=== PATIENT | male | born 1990 | race Caucasian/White ===

== ENCOUNTER 2020-01-16 15:07 | Outpatient (REF) | payer OTHER, SELFPAY | END 2020-01-16 15:08 | disposition home or self-care (01) | LOC: HO.LAB 15:07 | PROVIDERS: Visit Provider Nurse Practitioner Family | DX: Z20.828 Contact with and (suspected) exposure to other viral communicable diseases (principal); R05 Cough | CPT/HCPCS: U0003 ==

== ENCOUNTER 2020-01-22 09:28 | Outpatient (REF) | payer OTHER, SELFPAY ==
[2020-01-22 11:50] LABS: Anion Gap 11 (12-20); Blood Urea Nitrogen 15 mg/dL (9-16); Calcium 8.8 mg/dL (8.4-10.2); Carbon Dioxide 28 mmol/L (22-29); Chloride 104 mmol/L (96-108); Cholesterol 153 mg/dL; Estimated Glomerular Filt Rate > 60; Glucose Fasting 96 mg/dL (60-99); HDL Cholesterol 59 mg/dL; LDL Cholesterol Calculated 83 mg/dl; Potassium 4.6 mmol/l (3.3-5.1); Sodium 138 mmol/L (135-145); Triglycerides 58 mg/dL
== END 2020-01-22 09:29 | disposition home or self-care (01) ==
LOC: HO.HMGCLDS 09:28
PROVIDERS: PCP Internal Medicine; Visit Provider Internal Medicine
DX: Z00.01 Encounter for general adult medical examination with abnormal findings (principal); I10 Essential (primary) hypertension; R12 Heartburn; R14.0 Abdominal distension (gaseous); Z13.220 Encounter for screening for lipoid disorders
CPT/HCPCS: 80048; 80061

== ENCOUNTER 2021-04-04 11:56 | Inpatient (IN) | payer OTHER, SELFPAY ==
--- NOTE | 2021-04-04 | ECG_ITS ---
Test Reason : CHEST PAIN Blood Pressure : / mmHG Vent. Rate : 104 BPM Atrial Rate : 104 BPM P-R Int : 146 ms QRS Dur : 084 ms QT Int : 338 ms P-R-T Axes : 066 069 025 degrees QTc Int : 444 ms Sinus tachycardia with frequent , and consecutive Premature ventricular complexes Abnormal ECG No previous ECGs available Referred By: Generic ED Physician Electronically Signed By:GEORGE GUERRA
--- NOTE | ~2021-04-04 | US_ITS ---
EXAMINATION: US SCROTUM CLINICAL INFORMATION: Right testicular pain. COMPARISON: None TECHNIQUE: A sonogram of the scrotum was performed assessing bloom-scale appearance and color Doppler flow. Spectral Doppler analysis of the arterial and venous flow were performed in the testes bilaterally. FINDINGS: RIGHT: Right testicle measures 5.4 x 2.1 x 2.2 cm, volume 19 mL. No focal testicular parenchymal lesions are visualized. Spectral Doppler analysis of the arterial and venous flow is normal in the right testis. Right epididymal head is normal in size. No right hydrocele or varicocele is seen. Right epididymal Doppler flow is normal. LEFT: Left testicle measures 5.6 x 2.3 x 2.7 cm, volume 18 mL. No focal testicular parenchymal lesions are visualized. Spectral Doppler analysis of the arterial and venous flow is normal in the left testis. Left epididymal head is normal in size. No left hydrocele or varicocele is seen. Left epididymal Doppler flow is normal. US/US scrotum doppler IMPRESSION: Normal ultrasound of the testicles and scrotal contents. There is no evidence for any active torsion. Clinical follow-up and management recommended.
[2021-04-04 12:02] VITALS: BP 147/99; PULSE 83; RESP 18; TEMP 36.7; O2SAT 100; BMI 30.8
[2021-04-04 13:00] VITALS: BP 141/93; PULSE 80; RESP 13; TEMP 36.2; O2SAT 100
[2021-04-04 13:18] LABS: MANUAL DIFF FLAG NO
[2021-04-04 13:19] LABS: Basophils Percent Auto 0.4 % (0-2); Eosinophils Absolute Auto 0.1 X10*3/uL (0.0-0.4); Hematocrit 45.4 % (42.0-52.0); Hemoglobin 15.9 g/dl (14.0-18.0); Imm Gran Abs Auto 0.04 X10*3/uL (0.00-0.03); Imm Gran Pct Auto 0.6 % (0.0-0.4); Lymphocytes Absolute Auto 1.2 X10*3/uL (1.2-4.9); Lymphocytes Percent Auto 17.3 % (20-40); Mean Corpuscular Hemoglobin 31.2 pg (27.0-33.0); Mean Platelet Volume 9.3 fL (9.4-12.4); Monocytes Absolute Auto 0.8 X10*3/uL (0.1-1.2); Monocytes Percent Auto 11.6 % (2-11); Neutrophils Absolute Auto 4.9 x10*3/uL (2.0-8.3); Neutrophils Percent Auto 69.1 % (45-73); Platelet Count 226 X10*3/uL (160-400); Red Cell Distribution Width 11.9 % (11.0-16.0); White Blood Count 7.1 X10*3/uL (4.8-10.8)
--- NOTE | 2021-04-04 13:20 | ED_ITS ---
HPI - Chest Pain General Chief Complaint: Chest Pain Stated Complaint: chest pain Time Seen by Provider: 04/04/21 12:52 Source: patient Mode of arrival: ambulatory Limitations: no limitations History of Present Illness HPI narrative: This is a 30-year-old male coming in with multiple complaints patient is telling me that he is experiencing palpitations chest discomfort the left side of his chest, right-sided testicular swelling and pain and alcohol withdrawal all x4 days progressively worsening. He tells me that his chest pain is intermittent, localized to the left side of his chest describes as stabbing pain, nonradiating, severe. He tells me that he was evaluated for this chest pain at [facility] where he received an echo, EKG attest were all reassuring and within normal limits. He has a history of PVCs. He tells me that when he is having them he feels like his heart skips a beat. He is also complaining of right- sided testicular swelling and pain that started about 4 days ago been progressively or worsening, he tells me the right side of his scrotum peers to be more swollen than his left, he tells me he has gotten epididymitis before, and this feels like epididymitis, he has a remote history of gonorrhea and chlamydia which were treated according to patient. He also tells me that he stopped drinking 4 days ago he used to be a heavy drinker, drinking daily and he tells me he cut off drinking cold turkey. At this time patient appears extremely anxious upon my history taking. He denies fevers, chills, nausea, vomiting, abdominal pain, urinary frequency/urgency, dysuria, penile discharge. Patient also reports he is under lot of stress, his is currently and she is due in a few weeks. MD complaint: chest discomfort Onset (ago): day(s) (4) Timing of current episode: episodic Prior episodes: Yes Onset: during rest Pain location: left chest Pain radiation: none Severity: moderate Relieving factors: nothing Exacerbating factors: nothing Treatment prior to arrival: none Related Data Previous Rx's Medication Instructions Recorded doxycycline hyclate 100 mg capsule 100 mg PO BID 10 Days #20 cap 04/04/21 Allergies Allergy/AdvReac Type Severity Reaction Status Date / Time Sulfa (Sulfonamide AdvReac Nausea Verified 12/10/20 12:23 Antibiotics) Review of Systems Review of Systems: Constitutional : No Weight loss, No Fever, No Chills, No Fatigue, No Malaise ENT/Mouth : No sore throat, No Rhinorrhea Eyes: No Eye Pain, No Swelling, No Redness Cardiovascular : + Chest Pain, No SOB, No Dyspnea on Exertion, No Orthopnea, No Edema, + Palpitations Respiratory : No Cough, No Sputum, No Wheezing Gastrointestinal : No Nausea, No Vomiting, No Diarrhea, No Constipation, No abdominal Pain, No Hematochezia, No Melena Genitourinary : No Dysuria, No Urinary Frequency, No Hematuria, + testicular pain and swelling Musculoskeletal : No joint pain, No Myalgias, No Joint Swelling Skin : No Skin Lesions, No rash Neuro : No Weakness, No Numbness, No Dizziness, No Headache Psych : + Anxiety/Panic, No Depression All other systems reviewed and are negative Yes all other systems are reviewed and are negative [facility] Past Medical History Attestation statement: The following information was validated with the patient. Source: old records reviewed and nursing notes reviewed Medical History Chronic heartburn Chronic heartburn Family history of Crohn's disease Hemorrhoids Postprandial abdominal bloating Surgical History H/O: hemorrhoidectomy Family History Family History Sister Crohn's disease Social History Social History Alcohol intake: former Patient Tobacco Use Status: Former Tobacco user Use of substances other than those prescribed or required for medical reasons: No Advance Directives: No Advance Directives Information Provided: Yes Physical Exam Vital Signs: Vital Signs: Last Vital Signs Temp 97.2 F 04/04/21 13:00 Pulse 85 04/04/21 16:00 Resp 16 04/04/21 16:00 BP 138/85 04/04/21 16:00 Pulse Ox 98 04/04/21 16:00 BMI result Body Mass Index 30.8 VSS Appearance: Alert.? Oriented X3.? No acute distress.?+ patient is speaking very rapidly, appears to be very anxious. Head: Normocephalic, atraumatic, no step-offs or deformities Eyes: Pupils equal, round and reactive to light.? ENT: Pharynx normal.? Neck: Normal inspection.? Neck supple.? CVS: + rapid rate regular rhythm. Pulses normal.? Respiratory: No respiratory distress.? Breath sounds normal.? Abdomen: Soft and nontender.? 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 Slight swelling noted to the right scrotum, epididymis tender on the right-hand side. Normal on the left. Skin: Skin warm and dry.? Normal skin color.? Normal skin turgor.? Extremities: No lower extremity edema.? No calf ttp. 5/5 strength to bilateral upper and lower extremities. No asterixis, no fasciculations to tongue or upper extremities. Back: No midline tenderness, no C-spine tenderness, full range of motion, no CVA tenderness bilaterally Neuro: Oriented X 3.? No motor deficit.? No sensory deficit. Course Reevaluation(s) Reevaluation #1: CBC had no acute findings. Chemistry with no acute electrolyte abnormalities. Troponin negative. Urine clean. EKG with sinus tachycardia with frequent consecutive PVCs. Scrotal ultrasound within normal limits. Prophylactically treating patient for gonorrhea and chlamydia. TT Dr. Roman to see if patient would benifit from BB therapy as this has been going on for a while and he has been to multiple hospitals within the past few days. Time: 14:42 Reevaluation #2: Patient continues to have palpitations, lasting a few seconds, described as s evere. Time: 15:03 Reevaluation #3: Patient telling me that he is still having the chest pain, he did take asa at home. TT Dr. Horne who tells me his EKG looks like RVOT which can be treated with BB. Due to patient leaving stopping alcohol abruptly, his palpitations and his complaints of dizziness at this time will recheck to the hospitalist for admission. Will admit to hospitalist team. Time: 16:14 MDM - Chest Pain MDM Narrative Medical decision making narrative: 1313 30 yo m presents with anxiety, chest pain, palpitations and right testicular pain and swelling x4 days. Patient was recently evaluated and treated at [facility] where he obtain lab work, imaging and an ultrasound all of which were within normal limits. Patient was told that he has PVCs. Here patient is having PVCs on the monitor, doublets. Physical examination significant for very anxious 30-year-old male lying on the stretcher, speaking rapidly. Rapid regular rhythm noted. Likely sinus tachycardia. Lungs clear. Upon sensitive exam it appears as though the right scrotum is slightly more swollen than the left, slight tenderness to epididymis on the right. Normal on the left. At this time a testicular scrotal ultrasound with Doppler will be ordered to rule out torsion, epididymitis. Labs, urine, EKG, cardiac monitoring, CT/NG by urine will also be ordered. Based off of my initial evaluation a sink as though patient's symptoms are secondary to alcohol withdrawal, and anxiety. Unlikely cardiac in origin. However cardiac workup will be done to rule out ACS. Medical Records Data Attestation: I reviewed the patient's medical records. Lab Data Attestation: I reviewed the patient's lab results. Result diagrams: 04/04/21 13:13 04/04/21 13:13 Labs: Lab Results 04/04/21 04/04/21 04/04/21 Range/Units 13:13 13:13 13:13 WBC 7.1 (4.8-10.8) X10*3/uL RBC 5.10 (4.60-5.80) X10*6/uL Hgb 15.9 (14.0-18.0) g/dl Hct 45.4 (42.0-52.0) % MCV 89.0 (80.0-98.0) fL MCH 31.2 (27.0-33.0) pg MCHC 35.0 (31.0-36.0) g/dl RDW 11.9 (11.0-16.0) % Plt Count 226 (160-400) X10*3/uL MPV 9.3 L (9.4-12.4) fL Immature Gran % (Auto) 0.6 H (0.0-0.4) % Neut % (Auto) 69.1 (45-73) % Lymph % (Auto) 17.3 L (20-40) % [place] % (Auto) 11.6 H (2-11) % Eos % (Auto) 1.0 (0-4) % Baso % (Auto) 0.4 (0-2) % Lymph # (Auto) 1.2 (1.2-4.9) X10*3/uL [place] # (Auto) 0.8 (0.1-1.2) X10*3/uL Eos # (Auto) 0.1 (0.0-0.4) X10*3/uL Baso # (Auto) 0.0 (0.0-0.2) X10*3/uL Abs Immat Gran (auto) 0.04 H (0.00-0.03) X10*3/uL Absolute Neuts (auto) 4.9 (2.0-8.3) x10*3/uL Absolute Nucleated RBC 0.000 (0.0-0.012) X10*3/uL Nucleated RBC % (auto) 0.0 (0.0-0.2) /100WBC Sodium 138 (135-145) mmol/L Potassium 3.8 (3.3-5.1) mmol/L Chloride 103 (96-108) mmol/L Carbon Dioxide 25 (22-29) mmol/L Anion Gap 14 (12-20) BUN 10 (9-16) mg/dL Creatinine 0.99 (0.5-1.4) mg/dL Estim Creat Clear Calc 128.9 Estimated GFR > 60 Random Glucose 89 (60-115) mg/dL Calcium 9.9 D (8.4-10.2) mg/dL Magnesium 2.1 (1.6-2.6) mg/dL Troponin I High Sens < 3.5 (<3.5-35.0) ng/L Urine Color Urine Appearance Urine pH (5.0-8.0) Ur Specific [place] (1.005-1.025) Urine Protein (NEG-TRACE) MG/DL Urine Glucose (UA) (NEG) MG/DL Urine Ketones (NEG) MG/DL Urine Blood (NEG) Urine Nitrite (NEG) Ur Leukocyte Esterase (NEG) Urine RBC (0) /HPF Urine WBC (0-4) /HPF Ur Squamous Epith Cells /LPF Amorphous Sediment /LPF Urine Bacteria /LPF 04/04/21 Range/Units 13:40 WBC (4.8-10.8) X10*3/uL RBC (4.60-5.80) X10*6/uL Hgb (14.0-18.0) g/dl Hct (42.0-52.0) % MCV (80.0-98.0) fL MCH (27.0-33.0) pg MCHC (31.0-36.0) g/dl RDW (11.0-16.0) % Plt Count (160-400) X10*3/uL MPV (9.4-12.4) fL Immature Gran % (Auto) (0.0-0.4) % Neut % (Auto) (45-73) % Lymph % (Auto) (20-40) % [place] % (Auto) (2-11) % Eos % (Auto) (0-4) % Baso % (Auto) (0-2) % Lymph # (Auto) (1.2-4.9) X10*3/uL [place] # (Auto) (0.1-1.2) X10*3/uL Eos # (Auto) (0.0-0.4) X10*3/uL Baso # (Auto) (0.0-0.2) X10*3/uL Abs Immat Gran (auto) (0.00-0.03) X10*3/uL Absolute Neuts (auto) (2.0-8.3) x10*3/uL Absolute Nucleated RBC (0.0-0.012) X10*3/uL Nucleated RBC % (auto) (0.0-0.2) /100WBC Sodium (135-145) mmol/L Potassium (3.3-5.1) mmol/L Chloride (96-108) mmol/L Carbon Dioxide (22-29) mmol/L Anion Gap (12-20) BUN (9-16) mg/dL Creatinine (0.5-1.4) mg/dL Estim Creat Clear Calc Estimated GFR Random Glucose (60-115) mg/dL Calcium (8.4-10.2) mg/dL Magnesium (1.6-2.6) mg/dL Troponin I High Sens (<3.5-35.0) ng/L Urine Color YELLOW Urine Appearance CLEAR Urine pH 7.0 (5.0-8.0) Ur Specific [place] 1.010 (1.005-1.025) Urine Protein NEG (NEG-TRACE) MG/DL Urine Glucose (UA) NEG (NEG) MG/DL Urine Ketones NEG (NEG) MG/DL Urine Blood NEG (NEG) Urine Nitrite NEG (NEG) Ur Leukocyte Esterase NEG (NEG) Urine RBC 0 (0) /HPF Urine WBC 0 (0-4) /HPF Ur Squamous Epith Cells NONE /LPF Amorphous Sediment TRACE /LPF Urine Bacteria NONE /LPF Critical Care Time Critical Care Time Critical Care Time: No Discharge Plan Discharge Clinical Impression: Chest pain, Epididymitis, Frequent PVCs, Alcohol withdrawal Patient Disposition: Admitted As Inpatient Additional Instructions: Take your medications as prescribed. If you were prescribed antibiotics today, it is important that you take your medication to their entirety, do not skip any doses, do not finish them early. Follow-up with your primary care provider this week. Return to the emergency department with new or worsening symptoms. In case of emergency call 911
[2021-04-04] MEDS: cefTRIAXone sodium 500 MG, Lidocaine HCl 1 % MPF 1 ML IM (13:33)
[2021-04-04] MEDS: LORazepam 2 MG/ML VIAL 1 MG IVPUSH (13:33)
[2021-04-04 13:36] LABS: Anion Gap 14 (12-20); Blood Urea Nitrogen 10 mg/dL (9-16); Calcium 9.9 mg/dL (8.4-10.2); Carbon Dioxide 25 mmol/L (22-29); Chloride 103 mmol/L (96-108); Creatinine Clr Calc Pharmacy 128.9; Estimated Glomerular Filt Rate > 60; Glucose Random 89 mg/dL (60-115); Potassium 3.8 mmol/L (3.3-5.1); Sodium 138 mmol/L (135-145)
[2021-04-04 13:38] LABS: Troponin-I High Sensitivity < 3.5 ng/L (<3.5-35.0)
[2021-04-04 14:01] LABS: Appearance Urine CLEAR; Color Urine YELLOW; Glucose Urine UA NEG (NEG); Leukocyte Esterase Urine NEG (NEG); Nitrite Urine NEG (NEG); Urine Blood NEG (NEG); Urine Ketones NEG (NEG); Urine Protein NEG (NEG-TRACE)
[2021-04-04 14:17] LABS: Amorphous Sediment Urine TRACE /LPF; RBC Urine 0 /HPF (0); WBC Urine 0 /HPF (0-4)
[2021-04-04 15:26] LABS: Magnesium 2.1 mg/dL (1.6-2.6)
[2021-04-04 16:00] VITALS: BP 138/85; PULSE 85; RESP 16; O2SAT 98
[2021-04-04] MEDS: LORazepam 2 MG/ML VIAL 0.5 MG IVPUSH (16:11)
[2021-04-04 16:41] VITALS: BP 123/87; PULSE 79; RESP 21; O2SAT 98
--- NOTE | 2021-04-04 16:42 | PM.IMHP ---
History of Present Illness Date of Service: 04/04/21 Chief Complaint: Chest pain and palpitations 30-year-old male presented with chest pain and palpitations. Patient was at [facility] on 03/23/2021 for similar symptoms. He was found to have frequent PVCs. He was instructed to cut back on alcohol and caffeine. Since then patient continues to have symptoms on and off. Chest pain is sharp and left upper chest. Nonradiating, denies shortness of breath, fever, chills. Chest pain coincides with Palpitations. Patient has been trying to cut back on alcohol and caffeine, unclear time frame, he regularly drinks about a bottle of wine per day, 3 cups of coffee per day and energy drinks. in ED found to have frequent PVCs, otherwise unremarkable. Review of Systems Review of Systems: Constitutional: Denies fever, denies Chills Eyes: denies blurry vision ENT: denies sore throat CVS: chest pain Respiratory: Denies dyspnea GI: no abdominal pain : denies dysuria MSK: denies neck pain Skin: denies rash Neuro: denies specific motor weakness Psych: denies suicidal ideation Endocrine: denies heat/cold intolerance Hematologic: denies easy bleeding Allergy: denies hives [facility] Medical History Chronic heartburn Chronic heartburn Family history of Crohn's disease Hemorrhoids Postprandial abdominal bloating Family History Sister Crohn's disease Surgical History H/O: hemorrhoidectomy Social History Alcohol intake: former Patient Tobacco Use Status: Former Tobacco user Use of substances other than those prescribed or required for medical reasons: No Advance Directives: No Advance Directives Information Provided: Yes Meds Allergies Allergy/AdvReac Type Severity Reaction Status Date / Time Sulfa (Sulfonamide AdvReac Nausea Verified 12/10/20 12:23 Antibiotics) Active Medications: Current Medications Metoprolol Tartrate (Metoprolol Tartrate 25 Mg Tablet) 25 mg PO BID GEGE; Protocol Pharmacy Consult (Consult Rx Perform Med Rec) 1 each MISCELLANE ONCE PRN PRN Reason: Consult order Pharmacy Consult (Consult Rx Etoh Phenob Dosing) 1 each MISCELLANE ONCE ONE; Protocol Stop: 04/04/21 16:41 Physical Exam Vital Signs and Narrative: Vital Signs: Last Vital Signs Temp 97.2 F 04/04/21 13:00 Pulse 85 04/04/21 16:00 Resp 16 04/04/21 16:00 BP 138/85 04/04/21 16:00 Pulse Ox 98 04/04/21 16:00 BMI result Body Mass Index 30.8 General: anxious HEENT: atraumatic Neck: normal to visual inspection CVS: S1, S2, irregular Resp: CTA bilateral Chest: non tender GI: soft, non tender, non distended : no CVA tenderness Skin: no rashes Extremities: no edema Neuro: Oriented X3, grossly intact, tremulous Psych: cooperative Results Labs CBC and Chem 7: 04/04/21 13:13 04/04/21 13:13 Labs: Laboratory Results - last 24 hr 04/04/21 04/04/21 04/04/21 13:13 13:13 13:40 MCV 89.0 MCH 31.2 MCHC 35.0 RDW 11.9 Plt Count 226 MPV 9.3 L Immature Gran % (Auto) 0.6 H Neut % (Auto) 69.1 Lymph % (Auto) 17.3 L [place] % (Auto) 11.6 H Eos % (Auto) 1.0 Baso % (Auto) 0.4 Lymph # (Auto) 1.2 [place] # (Auto) 0.8 Eos # (Auto) 0.1 Baso # (Auto) 0.0 Abs Immat Gran (auto) 0.04 H Absolute Neuts (auto) 4.9 Absolute Nucleated RBC 0.000 Nucleated RBC % (auto) 0.0 Anion Gap 14 Estim Creat Clear Calc 128.9 Estimated GFR > 60 Random Glucose 89 Calcium 9.9 D Magnesium 2.1 Urine Color YELLOW Urine Appearance CLEAR Urine pH 7.0 Ur Specific [place] 1.010 Urine Protein NEG Urine Glucose (UA) NEG Urine Ketones NEG Urine Blood NEG Urine Nitrite NEG Ur Leukocyte Esterase NEG Urine RBC 0 Urine WBC 0 Ur Squamous Epith Cells NONE Amorphous Sediment TRACE Urine Bacteria NONE Imaging Radiologist's Impressions: Impressions Scrotum Ultrasound 04/04/21 14:05 IMPRESSION: Normal ultrasound of the testicles and scrotal contents. There is no evidence for any active torsion. Clinical follow-up and management recommended. Assessment and Plan (1) Chest pain: Status: Acute Plan 30M prsented with chest pain, palpitations Chest pain and palpitations due to frequent PVCs Likely due to alcohol dependence with withdrawal and caffeine toxicity Started metoprolol tartrate 25 mg b.i.d. Check echo Cardio eval Monitor on telemetry Alcohol dependence with withdrawal Phenobarb, CIWA Quality Stroke Does the patient have a stroke diagnosis?: No VTE Prior VTE?: No VTE Risk Level:: Medical - low VTE Device Contraindication: Treatment Not Indicated VTE Drug Contraindication: Treatment Not Indicated
--- NOTE | 2021-04-04 16:49 | PHA.MEDREC ---
Pharmacy Consult ? Medication Reconciliation Pharmacy has completed the medication reconciliation.
[2021-04-04] MEDS: Metoprolol Tartrate 25 MG TABLET PO (16:53)
[2021-04-04 17:33] LABS: COVID-19 Test Invalid (Negative)
[2021-04-04] MEDS: PHENobarbitaL sodium 130 MG/ML VIAL 234 MG IM (18:41)
--- NOTE | 2021-04-04 19:30 | PC.NURSE ---
Assumed care of pt. pt resting in stretcher in NAD. Pt wakes to voice, respirations easy, n/l. skin w/d. will continue to monitor pt.
[2021-04-04] MEDS: PHENobarbitaL sodium 130 MG/ML VIAL 175 MG IM ×2 (20:58→23:50)
[2021-04-04 21:38] VITALS: BP 108/60; PULSE 74; RESP 12; O2SAT 97
[2021-04-04 23:39] VITALS: BP 117/69; PULSE 83; RESP 16; TEMP 36.4; O2SAT 98
--- NOTE | 2021-04-04 23:40 | PC.NURSE ---
pt pulled out IV and was laying on the floor. New IV being inserted at this time. pt remains calm and cooperative. pt states i pulled out IV in my sleep
[2021-04-05 00:14] LABS: CT PCR NOT DETECTED (Not Detect.)
[2021-04-05 00:15] LABS: NG PCR NOT DETECTED (Not Detect.)
[2021-04-05 03:22] LABS: COVID-19 Test Negative (Negative)
[2021-04-05 03:56] VITALS: PULSE 71
[2021-04-05 04:19] VITALS: BP 133/91; PULSE 62; RESP 18; TEMP 36.8; O2SAT 100
[2021-04-05] MEDS: PHENobarbitaL 15 MG TABLET 45 MG PO (07:22)
[2021-04-05] MEDS: Metoprolol Tartrate 25 MG TABLET PO (07:22)
[2021-04-05 07:23] VITALS: BP 115/76; PULSE 74; RESP 17; TEMP 36.2; O2SAT 99
[2021-04-05 08:48] LABS: Hematocrit 43.2 % (42.0-52.0); Hemoglobin 15.1 g/dl (14.0-18.0); Mean Corpuscular Hemoglobin 31.2 pg (27.0-33.0); Mean Corpuscular Volume 89.3 fL (80.0-98.0); Mean Platelet Volume 9.6 fL (9.4-12.4); Platelet Count 217 X10*3/uL (160-400); Red Blood Count 4.84 X10*6/uL (4.60-5.80); Red Cell Distribution Width 11.9 % (11.0-16.0); White Blood Count 6.5 X10*3/uL (4.8-10.8)
[2021-04-05 09:15] LABS: Anion Gap 11 (12-20); Blood Urea Nitrogen 13 mg/dL (9-16); Calcium 9.2 mg/dL (8.4-10.2); Carbon Dioxide 26 mmol/L (22-29); Chloride 103 mmol/L (96-108); Creatinine Clr Calc Pharmacy 138.7; Estimated Glomerular Filt Rate > 60; Glucose Fasting 78 mg/dL (60-99); Potassium 4.1 mmol/L (3.3-5.1); Sodium 136 mmol/L (135-145)
--- NOTE | 2021-04-05 10:00 | CA_ITS ---
Transthoracic Echocardiogram Patient (Last, First, Middle): Thierno Danielle, Gender: Male Date of : 1990 Age: 30 Procedure Date: 04/05/2021 Procedure Type: Transthoracic Echocardiogram Location: ER Height: 177.8 cm Weight: 97.52 kg BSA: 2.15 m2 Heart Rate: bpm BP: 115 / 76 mmHg Staff Internist Office Based Only: Referring MD: Keshav Carl MD Symptoms: pvcs, chest pain Study Quality: Fair ECG Rhythm: Sinus Conclusions: - The left ventricular systolic function is normal. The calculated ejection fraction is 55% by biplane method. - Mildly increased right ventricular cavity size. - No obvious valvular pathology seen on this study. Findings Left Ventricle Normal left ventricular cavity size. There is normal left ventricular wall thickness. The left ventricular systolic function is normal. The calculated ejection fraction is 55% by biplane method. There is no evidence of regional wall motion abnormalities. Diastolic function is normal for age. Right Ventricle Mildly increased right ventricular cavity size. There is normal right ventricular systolic function. Atria Both atria are normal in size. Aortic Valve There is a normal trileaflet aortic valve. There is no aortic valve stenosis. There is no aortic valve regurgitation. Mitral Valve The mitral valve appears normal. There is trace mitral valve regurgitation. There is no mitral valve stenosis. Pulmonic Valve The pulmonic valve is likely normal. Tricuspid Valve Normal tricuspid valve structure. There is trace tricuspid valve regurgitation. The pulmonary artery systolic pressure is normal. Great Vessels Top normal size for sinus of valsalva/proximal ascending aorta. Venous The inferior vena cava is normal in size. Pericardium/Pleural There is no evidence of pericardial effusion. Prior Study Comparison No prior study available for comparison. Recommendations, Care & Conclusions No obvious valvular pathology seen on this study. Measurements 2D Linear Measurements IVSd: 1.23 0.6-0.9/0.6-1.0 cm LVIDd: 4.71 3.9-5.3/4.2-5.9 cm LVIDd Index: 2.19 2.4-3.2/2.2-3.1 cm/m2 LVIDs: 3.13 2.0-3.6 cm LVPWd: 1.23 0.7-1.1 cm Ao Root: 3.50 2.1-3.5 cm LA Diam: 3.50 2.7-3.8/3.0-4.0 cm LAIDs Index: 1.63 1.5-2.3 cm/m2 LV Mass: 274.68 67-162/88-224 g LV Mass Index: 127.76 43-95/49-115 g/m2 LVOT Diam: 2.50 3.0+(-)1.3 cm 2D Systolic Function EF 4C: 58.20 >55% EF 2C: 51.90 >55% EF BiP: 55.10 >55% Mitral Valve MV Pk E: 0.73 MV PK A: 0.48 MV Decel Time: 191.00 E/A: 1.50 E'Lateral: 11.00 E'Medial: 8.16 E/E' Med: 8.90 E/E' Lat: 6.60 PHT: 56.00 MVA PHT: 3.93 Decel [place]: 3.81 Aortic Valve AoV Pk Mook: 1.15 AoV Mn Mook: 0.79 AoV VTI: 0.26 AoV Pk Grad: 5.00 Aov Mn Grad: 3.00 AZAM Cont.VTI: 3.47 LVOT LVOT Pk Mook: 0.89 LVOT Mn Mook: 0.67 LVOT VTI: 0.18 LVOT Pk Grad: 3.00 LVOT Mn Grad: 2.00 LVOT Diam: 2.50 LVOT Area: 4.91 Diastolic Function MV Pk E: 0.73 MV Pk A: 0.48 E/A: 1.50 E'Medial: 8.16 E/E' Med: 8.90 E' Laterial: 11.00 E/E' Lat: 6.60 Right Ventricle TAPSE (mm): 26.00 Tricuspid Valve TR Pk Mook: 1.52 TR Pk Grad: 9.00 Great Vessels Aorta Ao Root-2D: 3.50 2.0-3.7 cm Sinus of Valsalva: 3.60 2.0-3.5 cm Ao Asc: 3.50 2.1-3.4 cm Pulmonary Valve PV Pk Mook: 0.79 Peak PV Grad: 2.00 Updated in Other Vendor System with Status of Final Denny Osborn MD electronically signed on 04/05/2021 1:34:34 PM with status of Final
--- NOTE | 2021-04-05 10:40 | PM.DS ---
DS: Providers Provider Date of Service: 04/05/21 Date of admission: 04/04/21 16:41 Primary care physician: Genesis Holcomb MD Consults: 04/04/21 16:34 Consult to Cardiology Routine Consulting Provider: Karson Horne Reason for consultation: frequent pvcs DS: Diagnosis Discharge Diagnosis (1) Chest pain: Status: Acute DS: Summary Hospital Course Hospital Course: Patient was admitted for palpitations due to frequent PVCs from alcohol dependence with withdrawal and caffeine toxicity. He was started on metoprolol tartrate 25 mg b.i.d. and PVC frequency significantly reduced. Preliminary read on echocardiogram was unremarkable, final reading should be followed up outpatient. For his alcohol withdrawal he was given phenobarbital and symptoms significantly improved. patient was seen by cardio who recommended continued metoprolol tartate and discharge home. Time Spent with Patient Time attestation: Total time spent providing and/or coordinating discharge services: Discharge coordination time: Greater than 30 minutes Quality: Stroke Does the patient have a stroke diagnosis?: No Physical Exam Vital Signs: Vital Signs: Last Vital Signs Temp 97.1 F 04/05/21 07:23 Pulse 74 04/05/21 07:23 Resp 17 04/05/21 07:23 BP 115/76 04/05/21 07:23 Pulse Ox 99 04/05/21 07:23 BMI result Body Mass Index 30.8 General: AO X 3, no acute distress Resp: CTA bilateral, no accessory muscles used CVS: S1,S2,RRR GI: soft, non tender, non distended Neuro: motor grossly intact, alert Psych: appropriate affect, appropriate insight DS: Data Data Completed and Pending Labs on day of discharge: Laboratory Results - last 24 hr 04/04/21 04/04/21 04/04/21 13:13 13:13 13:13 WBC 7.1 RBC 5.10 Hgb 15.9 Hct 45.4 MCV 89.0 MCH 31.2 MCHC 35.0 RDW 11.9 Plt Count 226 MPV 9.3 L Immature Gran % (Auto) 0.6 H Neut % (Auto) 69.1 Lymph % (Auto) 17.3 L [place] % (Auto) 11.6 H Eos % (Auto) 1.0 Baso % (Auto) 0.4 Lymph # (Auto) 1.2 [place] # (Auto) 0.8 Eos # (Auto) 0.1 Baso # (Auto) 0.0 Abs Immat Gran (auto) 0.04 H Absolute Neuts (auto) 4.9 Absolute Nucleated RBC 0.000 Nucleated RBC % (auto) 0.0 Sodium 138 Potassium 3.8 Chloride 103 Carbon Dioxide 25 Anion Gap 14 BUN 10 Creatinine 0.99 Estim Creat Clear Calc 128.9 Estimated GFR > 60 Random Glucose 89 Fasting Glucose Calcium 9.9 D Magnesium 2.1 Troponin I High Sens < 3.5 Urine Color Urine Appearance Urine pH Ur Specific [place] Urine Protein Urine Glucose (UA) Urine Ketones Urine Blood Urine Nitrite Ur Leukocyte Esterase Urine RBC Urine WBC Ur Squamous Epith Cells Amorphous Sediment Urine Bacteria Chlam trachomat DNA PCR COVID-19 ([facility]) COVID-19 Clin Com N.gonorrhoeae DNA (PCR) 04/04/21 04/04/21 04/04/21 13:40 13:40 16:56 WBC RBC Hgb Hct MCV MCH MCHC RDW Plt Count MPV Immature Gran % (Auto) Neut % (Auto) Lymph % (Auto) [place] % (Auto) Eos % (Auto) Baso % (Auto) Lymph # (Auto) [place] # (Auto) Eos # (Auto) Baso # (Auto) Abs Immat Gran (auto) Absolute Neuts (auto) Absolute Nucleated RBC Nucleated RBC % (auto) Sodium Potassium Chloride Carbon Dioxide Anion Gap BUN Creatinine Estim Creat Clear Calc Estimated GFR Random Glucose Fasting Glucose Calcium Magnesium Troponin I High Sens Urine Color YELLOW Urine Appearance CLEAR Urine pH 7.0 Ur Specific [place] 1.010 Urine Protein NEG Urine Glucose (UA) NEG Urine Ketones NEG Urine Blood NEG Urine Nitrite NEG Ur Leukocyte Esterase NEG Urine RBC 0 Urine WBC 0 Ur Squamous Epith Cells NONE Amorphous Sediment TRACE Urine Bacteria NONE Chlam trachomat DNA PCR NOT DETECTED COVID-19 ([facility]) Invalid COVID-19 Clin Com See Note N.gonorrhoeae DNA (PCR) NOT DETECTED 04/05/21 04/05/21 04/05/21 03:00 08:07 08:07 WBC 6.5 RBC 4.84 Hgb 15.1 Hct 43.2 MCV 89.3 MCH 31.2 MCHC 35.0 RDW 11.9 Plt Count 217 MPV 9.6 Immature Gran % (Auto) Neut % (Auto) Lymph % (Auto) [place] % (Auto) Eos % (Auto) Baso % (Auto) Lymph # (Auto) [place] # (Auto) Eos # (Auto) Baso # (Auto) Abs Immat Gran (auto) Absolute Neuts (auto) Absolute Nucleated RBC 0.000 Nucleated RBC % (auto) 0.0 Sodium 136 Potassium 4.1 Chloride 103 Carbon Dioxide 26 Anion Gap 11 L BUN 13 Creatinine 0.92 Estim Creat Clear Calc 138.7 Estimated GFR > 60 Random Glucose Fasting Glucose 78 Calcium 9.2 D Magnesium Troponin I High Sens Urine Color Urine Appearance Urine pH Ur Specific [place] Urine Protein Urine Glucose (UA) Urine Ketones Urine Blood Urine Nitrite Ur Leukocyte Esterase Urine RBC Urine WBC Ur Squamous Epith Cells Amorphous Sediment Urine Bacteria Chlam trachomat DNA PCR COVID-19 ([facility]ER[facility]) Negative COVID-19 Clin Com See Note N.gonorrhoeae DNA (PCR) Discharge Plan Discharge Patient Disposition: Home, Self-Care Discharge Diagnosis: pvcs, etoh withdrawal Referrals: Genesis Holcomb MD [Primary Care Provider] - 2 days Discharge Medications: New metoprolol tartrate 25 mg Tablet 25 mg PO BID Qty: 60 0RF Protocol: Hold for SBP/HR < HOLD for SBP < : 90 HOLD for HR < : 60 Continued aspirin 325 mg Tablet 325 mg PO DAILY PRN (Reason: Pain) 0RF Discharge Orders: Discharge Order (Routine); Ordered 04/05/21 Ordered By: Keshav Carl Diet: advance to usual diet Activity on Discharge: As tolerated Stand Alone Forms: Patient Portal Discharge page, Work/School Release Activity Restrictions/Additional Instructions: Take your medications as prescribed. If you were prescribed antibiotics today, it is important that you take your medication to their entirety, do not skip any doses, do not finish them early. Follow-up with your primary care provider this week. Return to the emergency department with new or worsening symptoms. In case of emergency call 911 Care Plan Goals: recovery Health Concerns: pvc, etoh, caffeine Plan of Treatment: start metoprolol, stop ETOH, stop significantly reduce caffeine Assessment: see above Patient Instructions: Chest Pain (ED), Epididymitis (ED), Premature Ventricular Contractions (ED), Chest Wall Pain (ED)
--- NOTE | 2021-04-05 11:15 | P.CONCA_ITS ---
History of Present Illness History of Present Illness Date of Service: 04/05/21 Chief complaint: ETOH Withdrawal Palpitations Narrative: This is a cardiology consultation regarding palpitations and PVCs. Patient does not have any known cardiac problems. He states he has had palpitations for several months now. He should he thought was just anxiety. However he was recently hospitalized at [facility] and then told to have frequent PVCs. He has been consuming about a bottle of wine or so, almost regularly. Also using energy drinks. Hence it was felt that these might be playing a role in his frequent PVCs and he was asked to cut down. Last class of wine was about 4 days ago. When he gets these episodes, he feels as though his face turning white and pale. He also feels neck pulsations. Otherwise, no clear syncopal episodes although he feels a temporary sensation of imbalance. No exercise intolerance or in fact any other complaints. No clear family history of cardiac issues either. Review of Systems Review of Systems: Yes all other systems are reviewed and are negative Cardiovascular: Cardiovascular: Reports as per HPI, Reports no additional cardiovascular complaints, Denies acrocyanosis, Denies cool extremities, Denies chest pain, Denies diaphoresis, Denies syncope, Denies claudication, Denies leg edema, Denies lightheadedness, Reports palpitations and Denies dyspnea Respiratory: Respiratory: Denies dyspnea Neurologic: Denies syncope Endocrine: Endocrine: Reports palpitations PMF Past Medical History Medical History Chronic heartburn Chronic heartburn Family history of Crohn's disease Hemorrhoids Postprandial abdominal bloating Family History Family History Sister Crohn's disease Surgical History Surgical History H/O: hemorrhoidectomy Social History Social History Household Members: Spouse and Children Housing: Condominium Do you presently have visiting nurse or other home services: No Alcohol intake: former Patient Tobacco Use Status: Former Tobacco user Tobacco use type: Cigarette and Smokeless Tobacco Years Smoked: 3 e-Cigarette/Vaping Use: Never Used Meds Allergies Allergy/AdvReac Type Severity Reaction Status Date / Time Sulfa (Sulfonamide AdvReac Nausea Verified 10/28/21 12:23 Antibiotics) Home Medications Medication Instructions Recorded Confirmed Last Taken Type aspirin 325 mg tablet 325 mg PO DAILY PRN 04/04/21 04/04/21 04/04/21 History Physical Exam Vital Signs: Vital Signs: Last Vital Signs Temp 97.1 F 04/05/21 07:23 Pulse 74 04/05/21 07:23 Resp 17 04/05/21 07:23 BP 115/76 04/05/21 07:23 Pulse Ox 99 04/05/21 07:23 BMI result Body Mass Index 30.8 Const: General: comfortable HENMT: Other: Unremarkable Neck: Neck: Yes normal visual inspection Chest: Chest palpation & inspection: normal inspection of the chest Resp: Auscultation: clear to auscultation bilaterally Cardio: Palpation: normal PMI Heart sounds: S1 normal heart sound present, S2 normal heart sound present, no gallops, no murmurs and no rubs GI: Palpation (GI): Soft to palpation Back/Spine/Pelvis: Other: unremarkable Skin: Lesions: other Neuro: General: other Extrem: General: Yes other Psych: Mental Status: other Objective Labs and Meds Result diagrams: 04/05/21 08:07 04/05/21 08:07 Lab results: Laboratory Results - last 24 hr 04/04/21 04/04/21 04/04/21 13:13 13:13 13:13 WBC 7.1 RBC 5.10 Hgb 15.9 Hct 45.4 MCV 89.0 MCH 31.2 MCHC 35.0 RDW 11.9 Plt Count 226 MPV 9.3 L Immature Gran % (Auto) 0.6 H Neut % (Auto) 69.1 Lymph % (Auto) 17.3 L [place] % (Auto) 11.6 H Eos % (Auto) 1.0 Baso % (Auto) 0.4 Lymph # (Auto) 1.2 [place] # (Auto) 0.8 Eos # (Auto) 0.1 Baso # (Auto) 0.0 Abs Immat Gran (auto) 0.04 H Absolute Neuts (auto) 4.9 Absolute Nucleated RBC 0.000 Nucleated RBC % (auto) 0.0 Sodium 138 Potassium 3.8 Chloride 103 Carbon Dioxide 25 Anion Gap 14 BUN 10 Creatinine 0.99 Estim Creat Clear Calc 128.9 Estimated GFR > 60 Random Glucose 89 Fasting Glucose Calcium 9.9 D Magnesium 2.1 Troponin I High Sens < 3.5 Urine Color Urine Appearance Urine pH Ur Specific [place] Urine Protein Urine Glucose (UA) Urine Ketones Urine Blood Urine Nitrite Ur Leukocyte Esterase Urine RBC Urine WBC Ur Squamous Epith Cells Amorphous Sediment Urine Bacteria Chlam trachomat DNA PCR COVID-19 ([facility]ER[facility]IN) COVID-19 Clin Com N.gonorrhoeae DNA (PCR) 04/04/21 04/04/21 04/04/21 13:40 13:40 16:56 WBC RBC Hgb Hct MCV MCH MCHC RDW Plt Count MPV Immature Gran % (Auto) Neut % (Auto) Lymph % (Auto) [place] % (Auto) Eos % (Auto) Baso % (Auto) Lymph # (Auto) [place] # (Auto) Eos # (Auto) Baso # (Auto) Abs Immat Gran (auto) Absolute Neuts (auto) Absolute Nucleated RBC Nucleated RBC % (auto) Sodium Potassium Chloride Carbon Dioxide Anion Gap BUN Creatinine Estim Creat Clear Calc Estimated GFR Random Glucose Fasting Glucose Calcium Magnesium Troponin I High Sens Urine Color YELLOW Urine Appearance CLEAR Urine pH 7.0 Ur Specific [place] 1.010 Urine Protein NEG Urine Glucose (UA) NEG Urine Ketones NEG Urine Blood NEG Urine Nitrite NEG Ur Leukocyte Esterase NEG Urine RBC 0 Urine WBC 0 Ur Squamous Epith Cells NONE Amorphous Sediment TRACE Urine Bacteria NONE Chlam trachomat DNA PCR NOT DETECTED COVID-19 ([facility]ERAFIN) Invalid COVID-19 Clin Com See Note N.gonorrhoeae DNA (PCR) NOT DETECTED 04/05/21 04/05/21 04/05/21 03:00 08:07 08:07 WBC 6.5 RBC 4.84 Hgb 15.1 Hct 43.2 MCV 89.3 MCH 31.2 MCHC 35.0 RDW 11.9 Plt Count 217 MPV 9.6 Immature Gran % (Auto) Neut % (Auto) Lymph % (Auto) [place] % (Auto) Eos % (Auto) Baso % (Auto) Lymph # (Auto) [place] # (Auto) Eos # (Auto) Baso # (Auto) Abs Immat Gran (auto) Absolute Neuts (auto) Absolute Nucleated RBC 0.000 Nucleated RBC % (auto) 0.0 Sodium 136 Potassium 4.1 Chloride 103 Carbon Dioxide 26 Anion Gap 11 L BUN 13 Creatinine 0.92 Estim Creat Clear Calc 138.7 Estimated GFR > 60 Random Glucose Fasting Glucose 78 Calcium 9.2 D Magnesium Troponin I High Sens Urine Color Urine Appearance Urine pH Ur Specific [place] Urine Protein Urine Glucose (UA) Urine Ketones Urine Blood Urine Nitrite Ur Leukocyte Esterase Urine RBC Urine WBC Ur Squamous Epith Cells Amorphous Sediment Urine Bacteria Chlam trachomat DNA PCR COVID-19 (SERAFIN) Negative COVID-19 Clin Com See Note N.gonorrhoeae DNA (PCR) ECG Interpretation: Admission EKG with sinus tachycardia, 104/Min; frequent PVCs. Left bundle morphology. Possibly RVOT type. Imaging Radiologist's impression: Impressions Scrotum Ultrasound 04/04/21 14:05 IMPRESSION: Normal ultrasound of the testicles and scrotal contents. There is no evidence for any active torsion. Clinical follow-up and management recommended. Assessment and Plan (1) PVC (premature ventricular contraction): Status: Acute (2) Alcohol withdrawal: Status: Acute Plan High sensitivity troponins are less than 3.5. Echocardiogram has been completed and yet to be reviewed. Otherwise, agree with beta-blockers. Strongly consult to stop alcohol completely. Avoid stimulants. Control of life stressors. Can arrange follow-up as an outpatient. Procedures Date of Service Date of Service: 04/05/21
--- NOTE | 2021-04-05 11:47 | MHC.CM.PN ---
PT DISCHARGED HOME WITH NO SERVICES PRIOR TO BEING SEEN BY CM
== END 2021-04-05 11:04 | disposition home or self-care (01) | DRG 309 ==
LOC: HO.ED 16:13 → HO.EDOVER 16:47
PROVIDERS: Physician Assistant; Admitting Provider Internal Medicine; Emergency Provider Emergency Medicine; PCP Internal Medicine; Visit Provider Internal Medicine
DX: I49.3 Ventricular premature depolarization (principal); F10.239 Alcohol dependence with withdrawal, unspecified; N45.1 Epididymitis; Z20.822 Contact with and (suspected) exposure to COVID-19; Z88.2 Allergy status to sulfonamides; Z79.82 Long term (current) use of aspirin; Z79.899 Other long term (current) drug therapy; Z79.891 Long term (current) use of opiate analgesic
CPT/HCPCS: 36415; 80048; 81001; 83735; 84484; 85025; 85027; 87491; 87591; 87635; 93005; 93306; 93975; 96372; 96374; 96376; 99285; J0696; J2060; J2560

== ENCOUNTER → 2021-04-20 11:02 | Outpatient (REF) | payer OTHER, SELFPAY ==
--- NOTE | 2021-04-20 11:05 | HM_ITS ---
* Total monitoring time 2 days and 23 hours. * Underlying rhythm is sinus. * Average rate 76/Min; range 52 to 125/Min; about 5% the time, rate greater than 100/min. * No atrial fibrillation or flutter or AV blocks or pauses. * Frequent premature ventricular contractions; burden of 9.6%; 4 morphologies; 337 couplets; 3 episodes noted, longest 3 beats. * Patient symptoms including shortness of breath, chest discomfort, palpitations correlate with PVCs. MTDD
== END ==
LOC: HO.CARD 11:02
PROVIDERS: Visit Provider Internal Medicine
DX: I49.3 Ventricular premature depolarization (principal)
CPT/HCPCS: 93242

== ENCOUNTER → 2021-05-19 14:19 | Outpatient (BNVA) | payer OTHER, SELFPAY | PROVIDERS: PCP Internal Medicine; Referring Provider Internal Medicine; Visit Provider Internal Medicine | DX: I49.3 Ventricular premature depolarization (principal) | CPT/HCPCS: 99212 ==

== ENCOUNTER → 2021-06-03 09:20 | Outpatient (REF) | payer OTHER, SELFPAY ==
--- NOTE | 2021-06-03 09:23 | CA_ITS ---
Acquisition Time: 2021-06-03 09:36:32 Total Exercise Time: 00:10:05 Test Indications: Abnormal ECG Medications: ASA METOPROLOL Protocol: EFRAIN Max HR: 187 BPM 97% of Pred: 191 BPM Max BP: 150/084 mmHG Max Work Load: 11.7 METS Exercise stresss test using Bruse protocol, total of 10 min 5 sec. Pt tolerated well, however reported chest thightness 3/10 test ended, Chest tightness resolved at 2 minutes in recovery. EKG with PVC's no Ischemic changes seen during exercise or in recovery. Normotensive response to exercise. Test reviewed with Dr. Horne Referred By: Denny Osborn Overread By: Dominique Thompson NP
== END ==
LOC: HO.CARD 09:20
PROVIDERS: PCP Internal Medicine; Visit Provider Internal Medicine
DX: I49.3 Ventricular premature depolarization (principal)
CPT/HCPCS: 93017

== ENCOUNTER → 2021-06-30 15:42 | Outpatient (REF) | payer OTHER, SELFPAY | LOC: HO.SL 15:42 | PROVIDERS: PCP Internal Medicine; Visit Provider Internal Medicine | DX: G47.33 Obstructive sleep apnea (adult) (pediatric) (principal) | CPT/HCPCS: 95806 ==

== ENCOUNTER 2021-07-20 10:07 | Emergency (ER) | payer OTHER, SELFPAY ==
--- NOTE | ~2021-07-20 | XR_ITS ---
EXAMINATION: XR CHEST CLINICAL INFORMATION: Chest pain. COMPARISON: None TECHNIQUE: Frontal view of the chest was obtained. FINDINGS: No significant abnormality is noted involving the heart, lungs, mediastinum, bony thorax or soft tissues. XR/XR chest 1V IMPRESSION: No acute cardiopulmonary process.
[2021-07-20 10:12] VITALS: BP 122/82; PULSE 67; RESP 18; TEMP 36.9; O2SAT 98; BMI 30.1
--- NOTE | 2021-07-20 10:15 | ECG_ITS ---
Test Reason : chest pain Blood Pressure : / mmHG Vent. Rate : 062 BPM Atrial Rate : 062 BPM P-R Int : 154 ms QRS Dur : 092 ms QT Int : 404 ms P-R-T Axes : 066 065 034 degrees QTc Int : 410 ms Sinus rhythm with occasional Premature ventricular complexes Abnormal ECG When compared with ECG of 04-APR-2021 12:03, Vent. rate has decreased BY 42 BPM Referred By: Generic ED Physician Electronically Signed By:GEORGE GUERRA
--- NOTE | 2021-07-20 10:35 | ED_ITS ---
HPI - Chest Pain General Chief Complaint: Chest Pain Stated Complaint: sharp chest pain, dizzy Time Seen by Provider: 07/20/21 10:34 Source: patient Mode of arrival: ambulatory Limitations: no limitations History of Present Illness HPI narrative: 30 years old male came in for evaluation of chest pain. Patient been having frequent left-sided chest pain radiates to the mid of the chest for the past few days, pain is at rest, patient go to gym and while exertion there is no chest pain, patient has a Mejia that monitor heart rate patient stated that sometimes has heart rate of Cameron's and feel lightheadedness with this low heart rate. Patient has been seen by Dr. Osborn who started the patient on metoprolol for palpitation that improved his symptoms. Past medical history significant for previous alcohol abuse and withdrawal the patient cut down on using alcohol significantly. Stress test on 06/03/2021 Exercise stresss test using Bruse protocol, total of 10 min 5 sec.? Pt tolerated ?well, however reported chest thightness 04/22 test ended,? Chest tightness ?resolved at 2 minutes in recovery.? EKG with PVC's no Ischemic changes seen ?during exercise or in recovery.? Normotensive response to exercise.?? Related Data Home Medications Medication Instructions Recorded Confirmed aspirin 81 mg tablet,delayed 81 mg PO DAILY 05/19/21 05/19/21 release Previous Rx's Medication Instructions Recorded metoprolol tartrate 25 mg tablet 25 mg PO BID #180 tab 06/14/21 Allergies Allergy/AdvReac Type Severity Reaction Status Date / Time Sulfa (Sulfonamide AdvReac Nausea Verified 05/19/21 14:22 Antibiotics) Review of Systems Review of Systems: All other systems are reviewed and are negative Constitutional: Reports as per HPI and Reports no additional constitutional complaints Eyes: Reports as per HPI and Reports no additional eye complaints Reports system reviewed and no additional complaints, except as documented Cardiovascular: Reports as per HPI and Reports no additional cardiovascular complaints Respiratory: Reports as per HPI and Reports no additional respiratory complaints Gastrointestinal: Reports as per HPI and Reports no additional gastrointestinal complaints Genitourinary: Reports no additional female genitourinary complaints Musculoskeletal: Reports no additional musculoskeletal complaints Skin/Breast: Reports system reviewed and no additional complaints, except as docu Psychiatric: Reports no additional psychiatric complaints Endocrine: Reports no additional endocrine complaints Hematologic/Lymphatic: Reports no additional hematologic/lymphatic complaints Allergic/Immunologic: Reports no additional allergic/immunologic complaints Reports system reviewed and no additional complaints, except as documented and Reports Abnormal speech present [facility] Past Medical History Medical History Chronic heartburn Chronic heartburn Family history of Crohn's disease Hemorrhoids Postprandial abdominal bloating Surgical History H/O: hemorrhoidectomy Family History Family History Sister Crohn's disease Social History Social History Household Members: Spouse and Children [facility] Do you presently have visiting nurse or other home services: No Alcohol intake: former Patient Tobacco Use Status: Former Tobacco user Tobacco use type: Cigarette and Smokeless Tobacco Years Smoked: 3 e-Cigarette/Vaping Use: Never Used Advance Directives: No Advance Directives Information Provided: No service: No Current occupational status: employed Physical Exam Vital Signs: Vital Signs: Last Vital Signs Temp 98.4 F 07/20/21 10:12 Pulse 97 07/20/21 12:25 Resp 17 07/20/21 12:25 BP 110/73 07/20/21 12:25 Pulse Ox 97 07/20/21 12:25 BMI result Body Mass Index 30.1 Vital signs have been reviewed as appeared to be correct. Blood pressure normal. Heart rate normal. Respiration rate normal. Temperature normal. Oxygen saturation normal. Appearance: Alert. Oriented X3. No acute distress. Head: Normal external exam. Normocephalic. Atraumatic. No George signs noted. No raccoon eyes noted Eyes: PERRLA. EOMI. Conjunctiva and sclera normal. Eyelids normal. ENT: TM's Normal. Pharynx normal. Uvula midline. Moist mucous membranes. No trismus noted. No drooling noted. No muffled voice noted. Neck: Normal inspection. Neck supple. FROM. No adenopathy. Thyroid Normal. No meningeal signs. No neck mass noted. CVS: Normal heart rate and rhythm. Heart sound normal. No murmurs noted. Pulses normal throughout. Respiratory: No respiratory distress. Painless inspiration. Breath sounds normal. No wheezes/rales/rhonchi noted. Chest nontender. No accessory muscle usage noted or decreased air movement noted. Abdomen: Soft and nontender. Bowel sounds normal in all 4 quadrants. No distention noted. No organomegaly noted. No visible injury noted. Back: No CVA tenderness. Full range of motion noted. Skin: Skin warm and dry. Normal skin color. Normal skin turgor. No rashes/lesions/lacerations noted. Extremities: No lower extremity edema. Extremities exhibit normal range of motion. Extremities nontender. Neuro: Oriented X 3. Cranial nerve exam: II-XII are grossly intact No motor deficit. No sensory deficit. Reflexes normal. Course Course Course Narrative: Assessment and plan. 30-year-old male with history of PVCs, patient was seen and evaluated by Dr. Osborn extensive cardiac workup which was unremarkable patient is taking metoprolol, patient feels dizzy sometimes and when he chordee knee down with his wrist monitoring watch he sees his heart rate in the 30s and 40s. Patient has unremarkable workup today, the case discussed with Dr. Osborn is to stop metoprolol and follow up with Dr. Osborn as an outpatient in his office. MDM - Chest Pain Medical Records Data Attestation: I reviewed the patient's medical records. Lab Data Attestation: I reviewed the patient's lab results. Result diagrams: 07/20/21 10:50 07/20/21 10:51 Labs: Lab Results 07/20/21 07/20/21 07/20/21 Range/Units 10:50 10:50 10:50 WBC 6.2 (4.8-10.8) X10*3/uL RBC 5.04 (4.60-5.80) X10*6/uL Hgb 15.4 (14.0-18.0) g/dl Hct 44.6 (42.0-52.0) % MCV 88.5 (80.0-98.0) fL MCH 30.6 (27.0-33.0) pg MCHC 34.5 (31.0-36.0) g/dl RDW 11.2 (11.0-16.0) % Plt Count 288 D (160-400) X10*3/uL MPV 9.2 L (9.4-12.4) fL Immature Gran % (Auto) 0.6 H (0.0-0.4) % Neut % (Auto) 54.2 (45-73) % Lymph % (Auto) 30.9 (20-40) % [place] % (Auto) 10.7 (2-11) % Eos % (Auto) 2.8 (0-4) % Baso % (Auto) 0.8 (0-2) % Lymph # (Auto) 1.9 (1.2-4.9) X10*3/uL [place] # (Auto) 0.7 (0.1-1.2) X10*3/uL Eos # (Auto) 0.2 (0.0-0.4) X10*3/uL Baso # (Auto) 0.1 (0.0-0.2) X10*3/uL Abs Immat Gran (auto) 0.04 H (0.00-0.03) X10*3/uL Absolute Neuts (auto) 3.4 (2.0-8.3) x10*3/uL Absolute Nucleated RBC 0.000 (0.0-0.012) X10*3/uL Nucleated RBC % (auto) 0.0 (0.0-0.2) /100WBC D-Dimer High Sensitivty < 150 NG/ML Sodium (135-145) mmol/L Potassium (3.3-5.1) mmol/L Chloride (96-108) mmol/L Carbon Dioxide (22-29) mmol/L Anion Gap (12-20) BUN (9-16) mg/dL Creatinine (0.5-1.4) mg/dL Estim Creat Clear Calc Estimated GFR Random Glucose (60-115) mg/dL Calcium (8.4-10.2) mg/dL Total Bilirubin (0.0-1.0) mg/dL Direct Bilirubin (0.0-0.5) mg/dL AST (5-37) U/L ALT (0-40) U/L Alkaline Phosphatase (39-117) U/L Troponin I High Sens < 3.5 (<3.5-35.0) ng/L B-Natriuretic Peptide (<100) pg/mL Total Protein (6.5-8.0) g/dL Albumin (3.5-5.0) g/dL Lipase (8-78) U/L Influenza Type A (PCR) (Negative) Influenza Type B (PCR) (Negative) RSV RNA Qual (PCR) (Negative) SARS-CoV-2 RNA (RT-PCR) (Negative) 07/20/21 07/20/21 07/20/21 Range/Units 10:50 10:50 10:51 WBC (4.8-10.8) X10*3/uL RBC (4.60-5.80) X10*6/uL Hgb (14.0-18.0) g/dl Hct (42.0-52.0) % MCV (80.0-98.0) fL MCH (27.0-33.0) pg MCHC (31.0-36.0) g/dl RDW (11.0-16.0) % Plt Count (160-400) X10*3/uL MPV (9.4-12.4) fL Immature Gran % (Auto) (0.0-0.4) % Neut % (Auto) (45-73) % Lymph % (Auto) (20-40) % [place] % (Auto) (2-11) % Eos % (Auto) (0-4) % Baso % (Auto) (0-2) % Lymph # (Auto) (1.2-4.9) X10*3/uL [place] # (Auto) (0.1-1.2) X10*3/uL Eos # (Auto) (0.0-0.4) X10*3/uL Baso # (Auto) (0.0-0.2) X10*3/uL Abs Immat Gran (auto) (0.00-0.03) X10*3/uL Absolute Neuts (auto) (2.0-8.3) x10*3/uL Absolute Nucleated RBC (0.0-0.012) X10*3/uL Nucleated RBC % (auto) (0.0-0.2) /100WBC D-Dimer High Sensitivty NG/ML Sodium 139 (135-145) mmol/L Potassium 4.7 (3.3-5.1) mmol/L Chloride 104 (96-108) mmol/L Carbon Dioxide 26 (22-29) mmol/L Anion Gap 14 (12-20) BUN 12 (9-16) mg/dL Creatinine 1.05 (0.5-1.4) mg/dL Estim Creat Clear Calc 120.2 Estimated GFR > 60 Random Glucose 93 (60-115) mg/dL Calcium 9.3 (8.4-10.2) mg/dL Total Bilirubin 1.5 H (0.0-1.0) mg/dL Direct Bilirubin 0.5 (0.0-0.5) mg/dL AST 18 (5-37) U/L ALT 17 (0-40) U/L Alkaline Phosphatase 33 L (39-117) U/L Troponin I High Sens (<3.5-35.0) ng/L B-Natriuretic Peptide < 10 (<100) pg/mL Total Protein 6.9 (6.5-8.0) g/dL Albumin 4.6 (3.5-5.0) g/dL Lipase 5 L (8-78) U/L Influenza Type A (PCR) NEGATIVE (Negative) Influenza Type B (PCR) NEGATIVE (Negative) RSV RNA Qual (PCR) NEGATIVE (Negative) SARS-CoV-2 RNA (RT-PCR) NEGATIVE (Negative) Imaging Data Chest x-ray: Attestation: I personally reviewed and interpreted this imaging study as follows: Radiologist's impression: Unremarkable exam. ECG Data ECG #1: Attestation: I personally reviewed and interpreted this ECG as follows: Interpretation: Normal sinus rhythm at 62 beats per minutes with occasional premature PVCs, unchanged from old EKG. Discharge Plan Discharge Clinical Impression: Chest pain, Frequent PVCs Patient Disposition: Home, Self-Care Instructions: Premature Ventricular Contractions (ED) Prescriptions: No Action metoprolol tartrate 25 mg tablet 25 mg PO BID Qty: 180 3RF Protocol: Hold for SBP/HR < HOLD for SBP < : 90 HOLD for HR < : 60 aspirin 81 mg tablet,delayed release (DR/EC) 81 mg PO DAILY 0RF Referrals: Genesis Holcomb MD [Primary Care Provider] - Denny Osborn MD [Physician] - Stand Alone Forms: Work/School Release
[2021-07-20 10:56] LABS: MANUAL DIFF FLAG NO
--- NOTE | 2021-07-20 10:56 | PC.NURSE ---
Pt comes in with complaints of CP and lightheadedness along with lower HR x a few months has had previous out pt cardiac workup. Pt is A&Ox4 at this time, no CP at the moment but does admit to dizziness, NSR on monitor with PVC's in the 60's. LCA, no edema, +pulses, labs drawn, CXR completed, awaiting results at this time. Will continue to monitor.
[2021-07-20 11:01] LABS: Basophils Absolute Auto 0.1 X10*3/uL (0.0-0.2); Basophils Percent Auto 0.8 % (0-2); Eosinophils Absolute Auto 0.2 X10*3/uL (0.0-0.4); Eosinophils Percent Auto 2.8 % (0-4); Hematocrit 44.6 % (42.0-52.0); Hemoglobin 15.4 g/dl (14.0-18.0); Imm Gran Abs Auto 0.04 X10*3/uL (0.00-0.03); Imm Gran Pct Auto 0.6 % (0.0-0.4); Lymphocytes Absolute Auto 1.9 X10*3/uL (1.2-4.9); Lymphocytes Percent Auto 30.9 % (20-40); Mean Corpuscular HGB Conc 34.5 g/dl (31.0-36.0); Mean Corpuscular Hemoglobin 30.6 pg (27.0-33.0); Mean Corpuscular Volume 88.5 fL (80.0-98.0); Mean Platelet Volume 9.2 fL (9.4-12.4); Monocytes Absolute Auto 0.7 X10*3/uL (0.1-1.2); Monocytes Percent Auto 10.7 % (2-11); Neutrophils Absolute Auto 3.4 x10*3/uL (2.0-8.3); Neutrophils Percent Auto 54.2 % (45-73); Platelet Count 288 X10*3/uL (160-400); Red Blood Count 5.04 X10*6/uL (4.60-5.80); Red Cell Distribution Width 11.2 % (11.0-16.0); White Blood Count 6.2 X10*3/uL (4.8-10.8)
[2021-07-20 11:08] LABS: D Dimer High Sensitivity < 150 NG/ML
[2021-07-20 11:17] LABS: B Type Natriuretic Peptide < 10 pg/mL (<100)
[2021-07-20 11:19] LABS: Troponin-I High Sensitivity < 3.5 ng/L (<3.5-35.0)
[2021-07-20 11:21] LABS: Alanine Aminotransferase 17 U/L (0-40); Albumin Level 4.6 g/dL (3.5-5.0); Alkaline Phosphatase 33 U/L (39-117); Anion Gap 14 (12-20); Aspartate Amino Transferase 18 U/L (5-37); Bilirubin Direct 0.5 mg/dL (0.0-0.5); Bilirubin Total 1.5 mg/dL (0.0-1.0); Blood Urea Nitrogen 12 mg/dL (9-16); Calcium 9.3 mg/dL (8.4-10.2); Carbon Dioxide 26 mmol/L (22-29); Chloride 104 mmol/L (96-108); Creatinine Clr Calc Pharmacy 120.2; Estimated Glomerular Filt Rate > 60; Glucose Random 93 mg/dL (60-115); Lipase 5 U/L (8-78); Potassium 4.7 mmol/L (3.3-5.1); Sodium 139 mmol/L (135-145); Total Protein 6.9 g/dL (6.5-8.0)
[2021-07-20 11:43] LABS: Influenza A PCR NEGATIVE (Negative); Influenza B PCR NEGATIVE (Negative); Resp Syncy Virus RNA Qual PCR NEGATIVE (Negative); SARS COV2 PCR INHOUSE NEGATIVE (Negative)
[2021-07-20 12:25] VITALS: BP 110/73; PULSE 97; RESP 17; O2SAT 97
== END 2021-07-20 13:01 | disposition home or self-care (01) ==
PROVIDERS: Emergency Provider Emergency Medicine; PCP Internal Medicine
DX: R07.9 Chest pain, unspecified (principal); I49.3 Ventricular premature depolarization; Z20.822 Contact with and (suspected) exposure to COVID-19
CPT/HCPCS: 0241U; 36415; 71045; 80048; 80076; 83690; 83880; 84484; 85025; 85379; 93005; 99283; 99284

== ENCOUNTER → 2021-07-28 13:26 | Outpatient (BNVA) | payer OTHER, SELFPAY | PROVIDERS: PCP Internal Medicine; Referring Provider Internal Medicine; Visit Provider Internal Medicine | DX: I49.3 Ventricular premature depolarization (principal) | CPT/HCPCS: 99212 ==

== ENCOUNTER → 2021-10-21 14:49 | Outpatient (BNVA) | payer OTHER, SELFPAY | PROVIDERS: PCP Internal Medicine; Referring Provider Internal Medicine; Visit Provider Nurse Practitioner Family | DX: I49.3 Ventricular premature depolarization (principal); R07.9 Chest pain, unspecified | CPT/HCPCS: 99212 ==

== ENCOUNTER 2021-11-03 12:19 | Outpatient (REF) | payer OTHER, SELFPAY ==
[2021-11-03 14:56] LABS: Influenza A PCR NEGATIVE (Negative); Influenza B PCR NEGATIVE (Negative); Resp Syncy Virus RNA Qual PCR NEGATIVE (Negative); SARS COV2 PCR INHOUSE NEGATIVE (Negative)
== END 2021-11-03 12:20 | disposition home or self-care (01) ==
LOC: HO.LAB 12:19
PROVIDERS: Visit Provider Nurse Practitioner Family
DX: Z20.822 Contact with and (suspected) exposure to COVID-19 (principal); J34.89 Other specified disorders of nose and nasal sinuses; R52 Pain, unspecified
CPT/HCPCS: 0241U

== ENCOUNTER 2022-03-11 14:20 | Outpatient (REF) | payer OTHER, SELFPAY ==
[2022-03-11 15:22] LABS: Influenza A PCR NEGATIVE (Negative); Influenza B PCR NEGATIVE (Negative); Resp Syncy Virus RNA Qual PCR NEGATIVE (Negative); SARS COV2 PCR INHOUSE NEGATIVE (Negative)
== END 2022-03-11 14:21 | disposition home or self-care (01) ==
LOC: HO.LNP 14:20
PROVIDERS: Visit Provider Physician Assistant
DX: Z20.822 Contact with and (suspected) exposure to COVID-19 (principal); B34.9 Viral infection, unspecified
CPT/HCPCS: 0241U

== ENCOUNTER 2022-07-16 04:16 | Emergency (ER) | payer OTHER, SELFPAY ==
--- NOTE | ~2022-07-16 | XR_ITS ---
EXAMINATION: XR CHEST CLINICAL INFORMATION: Chest pain, shortness of breath COMPARISON: None available. TECHNIQUE: Frontal view of the chest was obtained. FINDINGS: The lungs are clear with no focal consolidation. No evidence of pneumothorax, pulmonary edema, or pleural effusions. The cardiomediastinal silhouette is unremarkable. No acute osseous findings. XR/XR chest 1V IMPRESSION: No acute cardiopulmonary findings.
--- NOTE | 2022-07-16 04:20 | ECG_ITS ---
Test Reason : CHEST PAIN Blood Pressure : / mmHG Vent. Rate : 124 BPM Atrial Rate : 115 BPM P-R Int : 158 ms QRS Dur : 090 ms QT Int : 340 ms P-R-T Axes : 071 081 042 degrees QTc Int : 488 ms Sinus tachycardia with frequent , and consecutive Premature ventricular complexes Abnormal ECG When compared with ECG of 20-JUL-2021 10:15, NSVT is now present Referred By: Generic ED Physician Electronically Signed By:MERVAT OLIVAREZ MD
[2022-07-16 04:27] VITALS: BP 139/80; PULSE 70; RESP 24; TEMP 36.4; O2SAT 100; BMI 30.1
[2022-07-16 04:33] VITALS: BP 138/65; PULSE 80; RESP 24; TEMP 36.4; O2SAT 100
[2022-07-16] MEDS: Metoprolol Tartrate 5 MG/5 ML VIAL IVPUSH (04:49)
[2022-07-16] MEDS: LORazepam 2 MG/ML VIAL 0.5 MG IVPUSH (04:50)
[2022-07-16 04:58] LABS: MANUAL DIFF FLAG NO
[2022-07-16 04:59] LABS: Basophils Percent Auto 0.6 % (0-2); Eosinophils Absolute Auto 0.3 X10*3/uL (0.0-0.4); Eosinophils Percent Auto 4.6 % (0-4); Hematocrit 40.3 % (42.0-52.0); Hemoglobin 14.7 g/dl (14.0-18.0); Imm Gran Abs Auto 0.03 X10*3/uL (0.00-0.03); Imm Gran Pct Auto 0.6 % (0.0-0.4); Lymphocytes Percent Auto 36.9 % (20-40); Mean Corpuscular HGB Conc 36.5 g/dl (31.0-36.0); Mean Corpuscular Hemoglobin 30.9 pg (27.0-33.0); Mean Corpuscular Volume 84.8 fL (80.0-98.0); Mean Platelet Volume 8.9 fL (9.4-12.4); Monocytes Absolute Auto 0.7 X10*3/uL (0.1-1.2); Monocytes Percent Auto 13.1 % (2-11); Neutrophils Absolute Auto 2.4 x10*3/uL (2.0-8.3); Neutrophils Percent Auto 44.2 % (45-73); Platelet Count 260 X10*3/uL (160-400); Red Blood Count 4.75 X10*6/uL (4.60-5.80); Red Cell Distribution Width 11.7 % (11.0-16.0); White Blood Count 5.4 X10*3/uL (4.8-10.8)
--- NOTE | 2022-07-16 05:05 | ED.CHESTPAIN ---
HPI - Chest Pain General Chief Complaint: Chest Pain Stated Complaint: SOB/Dizziness Time Seen by Provider: 07/16/22 04:22 Source: patient and EMS Mode of arrival: EMS Limitations: no limitations History of Present Illness HPI narrative: 31-year-old male with history of PVCs presents with PVCs, chest pain, anxiety. Patient's symptoms appear to be worsened by particular diet. Today, he woke up at approximately 3:15 a.m. this morning with palpitations, chest discomfort. The symptoms were severe. They are ongoing and active. There is no clear relieving or exacerbating features at this time. There is associated with lightheadedness. The chest pain is located in the left side of his chest described as tight. Is associated with that abnormal sensation in his teeth. It is not associated with nausea vomiting. He has had no fevers or chills. No recent weight changes. Patient has had similar symptoms in the past but not nearly as severe. Patient is currently on diltiazem. He had been on metoprolol. Parent metoprolol had improved the symptoms and then transition to diltiazem, his symptoms have been more frequent. Related Data Previous Rx's Medication Instructions Recorded metoprolol tartrate 25 mg tablet 25 mg PO BID #180 tabs 07/28/21 prednisone 20 mg tablet 60 mg PO DAILY #9 tabs 12/13/21 albuterol sulfate 90 mcg/actuation 2 puff inhalation Q6H PRN 03/11/22 aerosol inhaler shortness of breath or wheezing #6.7 grams benzonatate 100 mg capsule 100 mg PO BID PRN cough #14 caps 03/11/22 prednisone 20 mg tablet 40 mg PO DAILY 5 days #10 tabs 03/11/22 Allergies Allergy/AdvReac Type Severity Reaction Status Date / Time Sulfa (Sulfonamide AdvReac Nausea Verified 12/13/21 12:31 Antibiotics) Review of Systems Review of Systems: CONSTITUTIONAL: Denies weight loss, fever and chills. HEENT: Denies changes in vision and hearing. RESPIRATORY: Denies SOB and cough. CV: Positive palpitations positive CP. GI: Denies abdominal pain, nausea, vomiting and diarrhea. : Denies dysuria and urinary frequency. MSK: Denies myalgia and joint pain. SKIN: Denies rash and pruritus. NEUROLOGICAL: Denies headache and syncope. PSYCHIATRIC: Denies recent changes in mood. Denies anxiety and depression. All other ROS are negative unless in HPI [facility] Past Medical History Medical History Chronic heartburn Chronic heartburn Family history of Crohn's disease Hemorrhoids Postprandial abdominal bloating Surgical History H/O: hemorrhoidectomy Family History Family History Sister Crohn's disease Social History Social History Household Members: Spouse and Children [facility] Do you presently have visiting nurse or other home services: No Alcohol intake: current Alcohol intake frequency: a few times a week Patient Tobacco Use Status: Current someday Tobacco user Tobacco use type: Cigarette and Smokeless Tobacco Years Smoked: 3 Smoked in Last 30 Days: No e-Cigarette/Vaping Use: Never Used Use of substances other than those prescribed or required for medical reasons: No Advance Directives: No Advance Directives Information Provided: Yes service: No Current occupational status: employed Physical Exam Vital Signs: Vital Signs: Last Vital Signs Temp 98.4 F 07/16/22 06:06 Pulse 73 07/16/22 06:06 Resp 16 07/16/22 06:06 BP 118/86 07/16/22 06:06 Pulse Ox 97 07/16/22 06:06 O2 Del Method Room Air 07/16/22 06:06 BMI result Body Mass Index 30.1 GEN: Well developed, positive acute distress, alert, oriented HEENT: Normocephalic, atraumatic, normal external ears, nose appears normal, no oropharyngeal edema or exudates Eyes: Normal to appearance Neck: Supple, no lymphadenopathy Respiratory: Talks in complete sentences, no respiratory distress, clear to auscultation bilaterally Cardiovascular: Irregular heart rate, no murmurs rubs or gallops Abdomen: Soft, nontender, nondistended, no guarding, no rebound Back: No CVA tenderness Extremities: No clubbing cyanosis or edema Neurologic: No focal neurologic deficits, cranial nerves 2-12 intact, strength is 5/5 bilaterally, psychomotor agitation Skin: No rash Course Course Course Narrative: 31-year-old male presents with palpitations, frequent PVCs on monitor. Patient was quite jittery, agitated and anxious appearing. He received Ativan 0.5 mg IV. I also provided patient with metoprolol 5 mg IV push. Patient had self reported the metoprolol was a better medication for him. Patient was otherwise hemodynamically stable. Patient will have laboratory analysis, frequent re-evaluation. Reevaluation(s) Reevaluation #1: Heart rate is improved. PVCs are significantly less frequent and no significant numbers of triplets occurring at this time. Patient is feeling much better. Will provide patient with an oral dose of metoprolol. Time: 05:39 Reevaluation #2: Patient is feeling much better at this time. PVCs are significantly diminished. His anxiety level significantly diminished. We will discharge him. He will stop diltiazem and restart metoprolol. 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 Time: 06:27 Medications Administered Discontinued Medications Generic Name Dose Route Start Last Admin Trade Name Ginoq PRN Reason Stop Dose Admin Lorazepam 0.5 mg 07/16/22 04:43 07/16/22 04:50 Lorazepam 2 Mg/Ml Vial IVPUSH 07/16/22 04:44 0.5 mg ONCE ONE Administration Metoprolol Tartrate 5 mg 07/16/22 04:43 07/16/22 04:49 Metoprolol Tartrate 5 Mg/5 Ml Vial IVPUSH 07/16/22 04:44 5 mg ONCE ONE Administration Metoprolol Tartrate 25 mg 07/16/22 05:38 07/16/22 06:14 Metoprolol Tartrate 25 Mg Tablet PO 07/16/22 05:39 25 mg ONCE ONE Administration Protocol Medical Decision Making Medical Decision Making MDM Narrative: 31-year-old male with history of PVCs presents with PVCs, palpitations, lightheadedness and chest pain on my evaluation, he was hemodynamically stable with a rapid heart rate with frequent PVCs. EKG confirmed sinus rhythm with multiple PVCs. Aggressive exam is unremarkable. Patient was placed on a security monitor. IV access was obtained was given intravenous fluids. Differential diagnosis could include thyroid dysfunction, electrolyte abnormality, PVCs, underlying additional cardiac dysrhythmias. Will check CBC, chemistry, troponin, TSH. Will provide patient with metoprolol 5 mg IV push since this apparently his work better for him in the past. Will provide patient with anxiety medications as well. Differential Diagnosis Differential Diagnoses: The differential diagnosis associated with the presentation includes (See above) Admission/Observation Consideration of admission/observation: Escalation of care including admission/observation considered Lab Data MDM Lab Attestation statement: I reviewed the patient's lab results. 07/16/22 04:55 07/16/22 04:55 Labs: Lab Results 07/16/22 07/16/22 07/16/22 Range/Units 04:55 04:55 04:55 WBC 5.4 (4.8-10.8) X10*3/uL RBC 4.75 (4.60-5.80) X10*6/uL Hgb 14.7 (14.0-18.0) g/dl Hct 40.3 L (42.0-52.0) % MCV 84.8 (80.0-98.0) fL MCH 30.9 (27.0-33.0) pg MCHC 36.5 H (31.0-36.0) g/dl RDW 11.7 (11.0-16.0) % Plt Count 260 (160-400) X10*3/uL MPV 8.9 L (9.4-12.4) fL Immature Gran % (Auto) 0.6 H (0.0-0.4) % Neut % (Auto) 44.2 L (45-73) % Lymph % (Auto) 36.9 (20-40) % [place] % (Auto) 13.1 H (2-11) % Eos % (Auto) 4.6 H (0-4) % Baso % (Auto) 0.6 (0-2) % Lymph # (Auto) 2.0 (1.2-4.9) X10*3/uL [place] # (Auto) 0.7 (0.1-1.2) X10*3/uL Eos # (Auto) 0.3 (0.0-0.4) X10*3/uL Baso # (Auto) 0.0 (0.0-0.2) X10*3/uL Abs Immat Gran (auto) 0.03 (0.00-0.03) X10*3/uL Absolute Neuts (auto) 2.4 (2.0-8.3) x10*3/uL Absolute Nucleated RBC 0.000 (0.0-0.012) X10*3/uL Nucleated RBC % (auto) 0.0 (0.0-0.2) /100WBC Sodium 142 (135-145) mmol/L Potassium 3.6 D (3.3-5.1) mmol/L Chloride 109 H (96-108) mmol/L Carbon Dioxide 20 L (22-29) mmol/L Anion Gap 17 (12-20) BUN 12 (9-16) mg/dL Creatinine 0.94 (0.5-1.4) mg/dL Estim Creat Clear Calc 133.1 Estimated GFR > 60 Random Glucose 98 (60-115) mg/dL Calcium 9.0 (8.4-10.2) mg/dL Phosphorus (2.7-4.5) mg/dL Magnesium (1.6-2.6) mg/dL Total Bilirubin 1.3 H (0.0-1.0) mg/dL Direct Bilirubin 0.4 (0.0-0.5) mg/dL AST 22 (5-37) U/L ALT 21 (0-40) U/L Alkaline Phosphatase 42 (39-117) U/L Troponin I High Sens < 2.7 (<3.5-35.0) ng/L Total Protein 6.4 L (6.5-8.0) g/dL Albumin 4.2 (3.5-5.0) g/dL Lipase 14 (8-78) U/L TSH (0.32-4.0) uIU/mL Urine Color Urine Appearance Urine pH (5.0-9.0) Ur Specific [place] (1.005-1.025) Urine Protein (Neg-Trace) mg/dL Urine Glucose (UA) (Negative) mg/dL Urine Ketones (Negative) mg/dL Urine Blood (Negative) Urine Nitrite (Negative) Ur Leukocyte Esterase (Negative) Ethyl Alcohol mg/dL 07/16/22 07/16/22 Range/Units 04:55 06:06 WBC (4.8-10.8) X10*3/uL RBC (4.60-5.80) X10*6/uL Hgb (14.0-18.0) g/dl Hct (42.0-52.0) % MCV (80.0-98.0) fL MCH (27.0-33.0) pg MCHC (31.0-36.0) g/dl RDW (11.0-16.0) % Plt Count (160-400) X10*3/uL MPV (9.4-12.4) fL Immature Gran % (Auto) (0.0-0.4) % Neut % (Auto) (45-73) % Lymph % (Auto) (20-40) % [place] % (Auto) (2-11) % Eos % (Auto) (0-4) % Baso % (Auto) (0-2) % Lymph # (Auto) (1.2-4.9) X10*3/uL [place] # (Auto) (0.1-1.2) X10*3/uL Eos # (Auto) (0.0-0.4) X10*3/uL Baso # (Auto) (0.0-0.2) X10*3/uL Abs Immat Gran (auto) (0.00-0.03) X10*3/uL Absolute Neuts (auto) (2.0-8.3) x10*3/uL Absolute Nucleated RBC (0.0-0.012) X10*3/uL Nucleated RBC % (auto) (0.0-0.2) /100WBC Sodium (135-145) mmol/L Potassium (3.3-5.1) mmol/L Chloride (96-108) mmol/L Carbon Dioxide (22-29) mmol/L Anion Gap (12-20) BUN (9-16) mg/dL Creatinine (0.5-1.4) mg/dL Estim Creat Clear Calc Estimated GFR Random Glucose (60-115) mg/dL Calcium (8.4-10.2) mg/dL Phosphorus 2.2 L (2.7-4.5) mg/dL Magnesium 1.9 (1.6-2.6) mg/dL Total Bilirubin (0.0-1.0) mg/dL Direct Bilirubin (0.0-0.5) mg/dL AST (5-37) U/L ALT (0-40) U/L Alkaline Phosphatase (39-117) U/L Troponin I High Sens (<3.5-35.0) ng/L Total Protein (6.5-8.0) g/dL Albumin (3.5-5.0) g/dL Lipase (8-78) U/L TSH 2.20 (0.32-4.0) uIU/mL Urine Color Yellow Urine Appearance Clear Urine pH 7.5 (5.0-9.0) Ur Specific [place] 1.010 (1.005-1.025) Urine Protein Negative (Neg-Trace) mg/dL Urine Glucose (UA) Negative (Negative) mg/dL Urine Ketones 15 (Negative) mg/dL Urine Blood Negative (Negative) Urine Nitrite Negative (Negative) Ur Leukocyte Esterase Negative (Negative) Ethyl Alcohol < 10 mg/dL Independent Interpretation I performed an independent interpretation of an: EKG (Normal sinus rhythm with frequent PVCs heart rate 124, no acute ST elevations depressions) and Plain X-Ray Independent Historian Clinical information obtained from an independent historian. History obtained from or confirmed by: EMS Prescription Management I considered prescription management with: Other (Benzodiazepines) Chronic Conditions Patient?s care impacted by: Other (Cardiac dysrhythmia) Critical Care Time Critical Care Time Critical Care Time: Yes Total Critical Care Time: 40 Attestation: Critical care time approximately 40 minutes provided with bedside assessment, frequent reassessments, interpretation and medical data, conversation with EMS, management of cardiac dysrhythmia all outside of any medical procedures Discharge Plan Discharge Clinical Impression: Frequent PVCs, Chest pain Patient Disposition: Home, Self-Care Instructions: Chest Pain (ED), Premature Ventricular Contractions (ED) Additional Instructions: I am recommending that you stop the diltiazem. I am recommending that he restart her metoprolol as previously prescribed. Also, please make sure to adhere to appropriate diet to help diminish the frequency and severity of your symptoms. 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
[2022-07-16 05:21] LABS: Alanine Aminotransferase 21 U/L (0-40); Albumin Level 4.2 g/dL (3.5-5.0); Alkaline Phosphatase 42 U/L (39-117); Anion Gap 17 (12-20); Aspartate Amino Transferase 22 U/L (5-37); Bilirubin Direct 0.4 mg/dL (0.0-0.5); Bilirubin Total 1.3 mg/dL (0.0-1.0); Blood Urea Nitrogen 12 mg/dL (9-16); Carbon Dioxide 20 mmol/L (22-29); Chloride 109 mmol/L (96-108); Creatinine Clr Calc Pharmacy 133.1; Estimated Glomerular Filt Rate > 60; Glucose Random 98 mg/dL (60-115); Lipase 14 U/L (8-78); Potassium 3.6 mmol/L (3.3-5.1); Sodium 142 mmol/L (135-145); Total Protein 6.4 g/dL (6.5-8.0)
[2022-07-16 05:22] LABS: Troponin-I High Sensitivity < 2.7 ng/L (<3.5-35.0)
[2022-07-16 05:31] LABS: Ethanol < 10 mg/dL; Magnesium 1.9 mg/dL (1.6-2.6); Phosphorus 2.2 mg/dL (2.7-4.5)
[2022-07-16 06:06] VITALS: BP 118/86; PULSE 73; RESP 16; TEMP 36.9; O2SAT 97
[2022-07-16 06:13] LABS: Appearance Urine Clear; Color Urine Yellow; Glucose Urine UA Negative (Negative); Leukocyte Esterase Urine Negative (Negative); Nitrite Urine Negative (Negative); PH 7.5 (5.0-9.0); Urine Blood Negative (Negative); Urine Ketones 15 mg/dL (Negative); Urine Protein Negative (Neg-Trace)
[2022-07-16] MEDS: Metoprolol Tartrate 25 MG TABLET PO (06:14)
[2022-07-16 06:29] LABS: Amphetamine Screen Urine Not Detected (Not Detect); Barbiturates, Urine Not Detected (Not Detect); Benzodiazepines Screen Urine Not Detected (Not Detect); Cannabinoid Screen Urine Not Detected (Not Detect); Cocaine Screen Urine Not Detected (Not Detect); Fentanyl, urine Not Detected (Not Detect); Opiate Screen Urine Not Detected (Not Detect); Phencyclidine Screen Urine Not Detected (Not Detect)
== END 2022-07-16 06:35 | disposition home or self-care (01) ==
PROVIDERS: Emergency Provider Emergency Medicine
DX: I49.3 Ventricular premature depolarization (principal); R07.89 Other chest pain; F17.200 Nicotine dependence, unspecified, uncomplicated; Z71.6 Tobacco abuse counseling; Z79.899 Other long term (current) drug therapy
CPT/HCPCS: 36415; 71045; 80048; 80076; 80307; 81003; 83690; 83735; 84100; 84443; 84484; 85025; 93005; 96374; 96375; 99284; 99285; J2060

== ENCOUNTER 2022-08-23 08:38 | Outpatient (AMB) | payer OTHER, SELFPAY ==
[2022-08-23 08:45] VITALS: BP 120/90; PULSE 68; BMI 30.4
--- NOTE | 2022-08-23 08:45 | MHC.OFFVIS ---
Intake Vital Signs 08/23/22 08:45 Height 5 ft 10 in Weight 211 lb 10.3 oz BMI 30.4 BP 120/90 H Blood Pressure Location Lt brachial Position Sitting Pulse 68 Intake Visit Reasons: routine follow up Intake Note: routine f/u patient still felling chest pain it radiates to arm and having a lot of dizziness [employer] Required: No Allergies Sulfa (Sulfonamide Antibiotics) Adverse Reaction (Verified 08/23/22 08:53) Nausea Medication List - Last Reconciled 08/23/22 by Cass Vaca NP-C albuterol sulfate 90 mcg/actuation 2 puffs inhalation Q6H PRN metoprolol tartrate 25 mg PO BID HPI routine follow up HPI Details Thierno is a 31-year-old male who has been evaluated for chest discomfort and heart palpitations with finding of frequent PVCs.? He then underwent a CTA of the coronary arteries for further evaluation which was normal. Today he reports that since February he has had increased heart palpitations and dizzy spells. He has been taking metoprolol b.i.d.. He does report high stress at work and is seeing a counselor. He was recently put on Lexapro. He can feel his heart palpitations at times but is not clear if they associate with the dizzy spells. He has felt like he was going to pass out. No syncope, falls. No exertional chest discomfort. He has had some tightness across his chest at times with activity and rest. No shortness of breath, PND, orthopnea or edema. He does heavy lifting at work. He tells me he wakes up frequently at night gasping and then breathing fast. He did have a prior home sleep study but tells me that the monitors had fallen off during the night and he does not believe it was an accurate study. [facility] Medical History Chronic heartburn Chronic heartburn Family history of Crohn's disease Frequent PVCs Hemorrhoids Postprandial abdominal bloating Surgical History H/O: hemorrhoidectomy Family History Sister Crohn's disease Social History Household Members: Spouse and Children [facility] Do you presently have visiting nurse or other home services: No Alcohol intake: current Alcohol intake frequency: a few times a week Patient Tobacco Use Status: Current someday Tobacco user Tobacco use type: Cigarette and Smokeless Tobacco Years Smoked: 3 e-Cigarette/Vaping Use: Never Used service: No Current occupational status: employed Review of Systems Const Details: Wakes up gasping All systems reviewed & are unremarkable except as noted in HPI and below Reports stops breathing during sleep ENT Reports dizziness Card Reports chest pain, Denies chest pain at rest, Denies chest pain with activity, Denies rapid heart rate, Denies pedal edema, Denies edema, Denies leg edema, Denies lightheadedness, Denies palpitations, Denies dyspnea, Denies dyspnea on exertion and Denies orthopnea Resp Denies cough, Denies dyspnea and Denies dyspnea on exertion GI Denies hematochezia and Denies change in stool character Musc Denies abnormal gait, Reports limited range of motion, Reports muscle cramps, Denies muscle weakness, Denies numbness, Denies radiating pain into limb, Denies stiffness and Denies tingling Neuro Denies abnormal gait, Reports dizziness, Denies numbness and Denies tingling Endo Denies palpitations Physical Exam Vital Signs: Last Vital Signs Pulse 68 08/23/22 08:45 BP 120/90 H 08/23/22 08:45 BMI result Body Mass Index 30.4 Const General: cooperative, healthy appearing, comfortable and no acute distress Orientation/consciousness: patient oriented x3 Neck Neck: Yes normal visual inspection Resp Effort & Inspection: normal respiratory effort Auscultation: clear to auscultation bilaterally, no crackles, no rales, no rhonchi and no wheezes Cardio Jugular venous distension: no JVD Rate: regular rate Rhythm: regular rhythm Heart sounds: S1 normal heart sound present, S2 normal heart sound present, no murmurs and no rubs Neuro General: patient oriented x3 Extrem General: Yes normal to inspection Psych Appearance: grossly normal Mental Status: mental status grossly normal Speech and movement: Normal speech and movement present Office Procedures EKG Details: Today, read by me, normal sinus rhythm, no acute ST or T-wave abnormalities, QTC 414 milliseconds, rate 68 [id number], Complete Assessment & Plan Assessment & Plan (1) Chest pain: Code(s): R07.9 - Chest pain, unspecified Plan: Previous cardiac evaluation for reports of chest discomfort and heart palpitations with findings of frequent PVCs. Echocardiogram done 04/05/2021 showed EF 55%, mild increase in the RV size, no valve abnormalities. Holter monitor done 04/20/2021 shows sinus rhythm with frequent PVCs, 9.6% of the time, multifocal. A home sleep study done 07/07/2021 shows no obstructive sleep apnea. Exercise stress test done 06/03/2021 showed exercise 11.7 Mets with report of 3/10 chest tightness and no EKG changes of ischemia. A CTA of the coronary arteries done on 08/25/2021 shows normal coronaries, study was excellent quality. The finding of his frequent PVCs was around the time he was drinking more alcohol. He was started on metoprolol and reported some improvement in symptoms. his last visit to cardiology was 10/21/2021. Since then he tells me his symptoms have worsened again. He describes atypical chest discomfort and heart palpitations. He is taking his metoprolol as directed. EKG done today showing normal sinus rhythm, heart rate 68, QTC 414 millisecond. he describes much symptoms during sleep including gasping, rapid breathing, and witnessed apnea. he does not believe the sleep study results were accurate as he says the home device kept falling off. Will recheck an in clinic sleep study to ensure accuracy. Will check Holter monitor to reassess frequency of PVCs. Will also update echocardiogram to ensure his EF has remained normal. PVCs in the presence of normal EF are benign and this was reviewed with him. His chest discomfort is atypical sounding and no concern for angina in the setting of normal coronaries on CTA. He continues to work on controlling his anxiety and is following with a therapist. Will increase his metoprolol up to 37.5 mg b.i.d. cardiology follow-up in 6 weeks, sooner if needed (2) Frequent PVCs: Code(s): I49.3 - Ventricular premature depolarization Orders: Orders CA echo transthoracic complete Today I49.3 - Ventricular premature depolarization, R42 - Dizziness and giddiness ECG 3 day holter monitor Today I49.3 - Ventricular premature depolarization, R42 - Dizziness and giddiness RT PSG in-lab sleep study Today G47.30 - Sleep apnea, unspecified Medications: Changed From metoprolol tartrate 25 mg PO BID 180 tabs 0RF To metoprolol tartrate 37.5 mg (1.5 x 25 mg) PO BID 270 tabs 1RF 90 days Coding Level of Care Code Est Pt Level 4 (96891) Diagnoses Chest pain R07.9 Frequent PVCs I49.3 CPT Codes EKG - CPT: 44202-[id number], Complete ([id number]) Time Spent (min) 28 Comment Chart review, documentation, interview, assessment
== END 2022-08-23 09:15 | disposition home or self-care (01) ==
PROVIDERS: PCP Internal Medicine; Visit Provider Nurse Practitioner Family
DX: R07.9 Chest pain, unspecified (principal); I49.3 Ventricular premature depolarization
CPT/HCPCS: 93010; 99214

== ENCOUNTER → 2022-08-23 08:38 | Outpatient (BNVA) | payer OTHER, SELFPAY | PROVIDERS: PCP Internal Medicine; Visit Provider Nurse Practitioner Family | DX: I49.3 Ventricular premature depolarization (principal); R07.9 Chest pain, unspecified | CPT/HCPCS: 93005; 99212 ==